=== PATIENT | female | born 1945 | race Caucasian/White ===

== ENCOUNTER 2021-10-04 13:09 | Inpatient (IN) ==
[2021-10-04 16:17] LABS: Basophils % 0.1 % (0.0-0.8); Hematocrit 34.1 VOL% (35.7-47.0); Hemoglobin 10.8 GM/DL (12.0-16.0); Immature Granulocytes % 0.5 %; Immature Granulocytes Absolute 0.04 #; Lymphocytes # 0.6 10*3/uL (1.4-4.0); Lymphocytes % 6.7 % (21.3-54.2); Mean Corpuscular HGB Conc 31.7 GM/DL (32-36); Mean Corpuscular Volume 90.5 FL (87-102); Mean Platelet Volume 14.8 FL (9.6-12.0); Monocytes % 8.1 % (1.7-12.7); Neutrophils % 84.6 % (38.7-73.9); Platelet Count 133 T/CUMM (130-400); Red Blood Count 3.77 MC/CUMM (3.8-5.5); Red Cell Distribution Width 14.1 % (9.3-17.3); White Blood Count 8.6 T/CUMM (4-12)
[2021-10-04 16:39] LABS: Albumin 2.7 G/DL (3.4-5.0); Calcium 8.9 MG/DL (8.5-10.1); Total Protein 7.1 G/DL (6.4-8.2)
[2021-10-04] MEDS ORDERED: ACETAMINOPHEN 325 MG TABLET PO PRN (17:45)
[2021-10-04] MEDS ORDERED: ONDANSETRON 4 MG/2 ML VIAL IV PRN (17:45)
[2021-10-04] MEDS ORDERED: AZITHROMYCIN INJ 500 MG in SODIUM CHLORIDE 0.9% 250 ML IV SCH (18:30)
[2021-10-04] MEDS ORDERED: TEMAZEPAM 7.5 MG CAPSULE PO PRN (18:31)
[2021-10-04] MEDS: SODIUM CHLORIDE 0.9% 1,000 ML IV SCH (19:11)
[2021-10-04] MEDS: AZITHROMYCIN INJ 250 MG in SODIUM CHLORIDE 0.9% 250 ML IV SCH (19:11)
[2021-10-04] MEDS: methylPREDNISolone SOD SUC 40 MG/1 ML VIAL IV SCH (19:12)
[2021-10-04] MEDS: DOCUSATE SODIUM 100 MG CAPSULE PO SCH (20:22)
[2021-10-05 00:40] LABS: Bilirubin,Urine Negative (Negative); Blood, Urine Small mg/dL (Negative); Glucose,Urine (UA) Negative (Negative); Hyaline Casts,Urine 1 /LPF (0-3); Ketones,Urine Negative (Negative); Mucus,Urine Occasional /LPF (Occasional); Nitrite,Urine Negative (Negative); Protein,Urine 30 MG/DL; RBC,Urine 10 /HPF (0-4); Squamous Epithelial Cell,Urine Occasional /HPF (0-10); Urine Appearance Slightly Hazy (Clear); Urine Specific Gravity 1.016 (1.001-1.035); Urine Urobilinogen < 2.0 EU/DL (<2.0)
[2021-10-05 00:41] LABS: Urine Color Yellow (Yellow)
[2021-10-05] MEDS: SODIUM CHLORIDE 0.9% 1,000 ML IV SCH ×2 (02:51→13:33)
[2021-10-05] MEDS: methylPREDNISolone SOD SUC 40 MG/1 ML VIAL IV SCH ×3 (05:34→21:24)
[2021-10-05 06:05] LABS: Basophils % 0.2 % (0.0-0.8); Hematocrit 30.7 VOL% (35.7-47.0); Immature Granulocytes % 0.6 %; Immature Granulocytes Absolute 0.03 #; Lymphocytes # 0.5 10*3/uL (1.4-4.0); Lymphocytes % 8.8 % (21.3-54.2); Mean Corpuscular HGB Conc 32.6 GM/DL (32-36); Mean Corpuscular Volume 90.8 FL (87-102); Mean Platelet Volume 13.9 FL (9.6-12.0); Monocytes % 3.1 % (1.7-12.7); Neutrophils % 87.3 % (38.7-73.9); Platelet Count 112 T/CUMM (130-400); Red Blood Count 3.38 MC/CUMM (3.8-5.5); Red Cell Distribution Width 14.2 % (9.3-17.3); White Blood Count 5.1 T/CUMM (4-12)
[2021-10-05 06:22] LABS: Albumin 2.2 G/DL (3.4-5.0); Bilirubin,Total 1.1 MG/DL (0.20-1.00); Calcium 8.3 MG/DL (8.5-10.1); Osmolality,Calculated 316.4 MOS/KG (273-304); Potassium 4.2 MMOL/L (3.5-5.1); Total Protein 6.2 G/DL (6.4-8.2)
[2021-10-05 07:32] LABS: Ovalocytes Few
[2021-10-05 07:33] LABS: Burr Cells Slight; Platelet Estimate Adequate
[2021-10-05] MEDS: DOCUSATE SODIUM 100 MG CAPSULE PO SCH ×2 (11:26→21:25)
[2021-10-05] MEDS: PANTOPRAZOLE 40 MG TABLET PO SCH (11:26)
[2021-10-05] MEDS ORDERED: LIDOCAINE 2% VISCOUS 100 ML BOTTLE SWISH/SPIT SCH (16:30)
[2021-10-05] MEDS: AZITHROMYCIN INJ 250 MG in SODIUM CHLORIDE 0.9% 250 ML IV SCH ×2 (19:45→21:23)
[2021-10-05] MEDS ORDERED: LIDOCAINE 2% VISCOUS 100 ML BOTTLE SWISH/SPIT PRN (19:46)
[2021-10-06 06:30] LABS: Hemoglobin 10.1 GM/DL (12.0-16.0); Immature Granulocytes % 0.6 %; Immature Granulocytes Absolute 0.06 #; Lymphocytes # 0.4 10*3/uL (1.4-4.0); Lymphocytes % 3.6 % (21.3-54.2); Mean Corpuscular HGB Conc 31.6 GM/DL (32-36); Mean Corpuscular Volume 91.2 FL (87-102); Mean Platelet Volume 14.7 FL (9.6-12.0); Monocytes % 5.3 % (1.7-12.7); Neutrophils % 90.5 % (38.7-73.9); Platelet Count 136 T/CUMM (130-400); Red Blood Count 3.51 MC/CUMM (3.8-5.5); Red Cell Distribution Width 14.6 % (9.3-17.3); White Blood Count 9.9 T/CUMM (4-12)
[2021-10-06 06:54] LABS: Calcium 8.3 MG/DL (8.5-10.1); Osmolality,Calculated 326.1 MOS/KG (273-304)
[2021-10-06 06:56] LABS: Band Neutrophils 2 % (0-10); Hypochromia 1+; Lymphocytes 1 % (20-55); Microcytosis 1+; Platelet Estimate Normal; Segmented Neutrophils 92 % (50-85); Total Cells Counted 100
[2021-10-06] MEDS: DOCUSATE SODIUM 100 MG CAPSULE PO SCH ×2 (09:42→21:45)
[2021-10-06] MEDS: PANTOPRAZOLE 40 MG TABLET PO SCH (09:42)
[2021-10-06] MEDS: methylPREDNISolone SOD SUC 40 MG/1 ML VIAL IV SCH ×2 (09:42→21:45)
[2021-10-06] MEDS: ENOXAPARIN 30 MG/0.3 ML SYRINGE SUBCUT SCH (12:17)
[2021-10-06] MEDS: ALBUTEROL/IPRATROPIUM 3 ML NEB RESP TX SCH ×2 (13:25→20:44)
[2021-10-06] MEDS: NYSTATIN 500,000 UNIT/5 ML UDCUP SWISH/SWAL SCH ×3 (14:12→21:45)
[2021-10-06] MEDS: SODIUM CHLORIDE 0.9% 1,000 ML IV SCH ×3 (16:42→19:08)
[2021-10-06] MEDS: AZITHROMYCIN INJ 250 MG in SODIUM CHLORIDE 0.9% 250 ML IV SCH (21:45)
[2021-10-07 05:34] LABS: Hematocrit 32.5 VOL% (35.7-47.0); Hemoglobin 10.4 GM/DL (12.0-16.0); Immature Granulocytes % 0.8 %; Immature Granulocytes Absolute 0.06 #; Lymphocytes # 0.3 10*3/uL (1.4-4.0); Lymphocytes % 3.1 % (21.3-54.2); Monocytes % 6.4 % (1.7-12.7); Neutrophils % 89.7 % (38.7-73.9); Platelet Count 127 T/CUMM (130-400); Red Blood Count 3.61 MC/CUMM (3.8-5.5); Red Cell Distribution Width 14.4 % (9.3-17.3)
[2021-10-07 05:57] LABS: Calcium 8.4 MG/DL (8.5-10.1); Osmolality,Calculated 331.6 MOS/KG (273-304)
[2021-10-07 06:14] LABS: Band Neutrophils 1 % (0-10); Hypochromia 1+; Lymphocytes 3 % (20-55); Ovalocytes Few; Segmented Neutrophils 95 % (50-85); Total Cells Counted 100
[2021-10-07 06:15] LABS: Acanthocytes Few; Microcytosis 1+; Platelet Estimate Adequate; Target Cells Slight
[2021-10-07] MEDS: ALBUTEROL/IPRATROPIUM 3 ML NEB RESP TX SCH ×3 (07:20→18:58)
[2021-10-07] MEDS ORDERED: NON-FORMULARY MEDICATION (Omeprazole 40 mg capsule,delayed release(DR/EC)) PO SCH (09:00)
[2021-10-07] MEDS: DOCUSATE SODIUM 100 MG CAPSULE PO SCH ×2 (09:14→21:31)
[2021-10-07] MEDS: MONTELUKAST 10 MG TABLET PO SCH (09:14)
[2021-10-07] MEDS: PANTOPRAZOLE 40 MG TABLET PO SCH (09:14)
[2021-10-07] MEDS: NYSTATIN 500,000 UNIT/5 ML UDCUP SWISH/SWAL SCH ×4 (09:14→21:31)
[2021-10-07] MEDS: FLUCONAZOLE 100 MG TABLET PO SCH (09:14)
[2021-10-07] MEDS: methylPREDNISolone SOD SUC 40 MG/1 ML VIAL IV SCH ×2 (09:27→21:31)
[2021-10-07] MEDS: ENOXAPARIN 30 MG/0.3 ML SYRINGE SUBCUT SCH (16:08)
[2021-10-07] MEDS: MYLANTA/LIDO VISC 2:1 300 ML BOTTLE SWISH/SPIT SCH ×2 (16:09→21:32)
[2021-10-07] MEDS ORDERED: AMINO ACIDS/DEXT/LYTES 4.25-5% 2,000 ML IV SCH (17:00)
[2021-10-07] MEDS: MEROPENEM 500 MG in SODIUM CHLORIDE 0.9% 100 ML IV SCH (21:32)
[2021-10-07] MEDS: metroNIDAZOLE INJ 500 MG/100 ML PREMIX IV SCH (23:16)
[2021-10-08] MEDS: methylPREDNISolone SOD SUC 40 MG/1 ML VIAL IV SCH ×3 (05:13→21:34)
[2021-10-08] MEDS: metroNIDAZOLE INJ 500 MG/100 ML PREMIX IV SCH ×3 (05:13→23:01)
[2021-10-08] MEDS: ALBUTEROL/IPRATROPIUM 3 ML NEB RESP TX SCH ×3 (07:45→19:18)
[2021-10-08 07:52] LABS: Basophils % 0.1 % (0.0-0.8); Hematocrit 36.7 VOL% (35.7-47.0); Hemoglobin 11.8 GM/DL (12.0-16.0); Immature Granulocytes % 1.4 %; Immature Granulocytes Absolute 0.12 #; Lymphocytes # 0.3 10*3/uL (1.4-4.0); Lymphocytes % 3.8 % (21.3-54.2); Mean Corpuscular HGB Conc 32.2 GM/DL (32-36); Mean Corpuscular Volume 89.7 FL (87-102); Monocytes % 5.1 % (1.7-12.7); Neutrophils % 89.6 % (38.7-73.9); Platelet Count 106 T/CUMM (130-400); Red Blood Count 4.09 MC/CUMM (3.8-5.5); Red Cell Distribution Width 14.6 % (9.3-17.3); White Blood Count 8.7 T/CUMM (4-12)
[2021-10-08 08:12] LABS: Albumin 2.3 G/DL (3.4-5.0); Bilirubin,Total 1.4 MG/DL (0.20-1.00); Calcium 8.9 MG/DL (8.5-10.1); Osmolality,Calculated 329.6 MOS/KG (273-304); Potassium 3.8 MMOL/L (3.5-5.1); Total Protein 6.6 G/DL (6.4-8.2)
[2021-10-08 08:37] LABS: Hypochromia Slight; Lymphocytes 1 % (20-55); Microcytosis Slight; Segmented Neutrophils 92 % (50-85); Total Cells Counted 100
[2021-10-08] MEDS: NYSTATIN 500,000 UNIT/5 ML UDCUP SWISH/SWAL SCH ×3 (09:05→18:27)
[2021-10-08] MEDS: MYLANTA/LIDO VISC 2:1 300 ML BOTTLE SWISH/SPIT SCH ×3 (09:06→18:27)
[2021-10-08] MEDS: DOCUSATE SODIUM 100 MG CAPSULE PO SCH (09:18)
[2021-10-08] MEDS: FLUCONAZOLE 100 MG TABLET PO SCH (09:18)
[2021-10-08] MEDS: MONTELUKAST 10 MG TABLET PO SCH (09:19)
[2021-10-08] MEDS: PANTOPRAZOLE 40 MG TABLET PO SCH (09:19)
[2021-10-08] MEDS: ENOXAPARIN 30 MG/0.3 ML SYRINGE SUBCUT SCH (10:21)
[2021-10-08] MEDS: MEROPENEM 500 MG in SODIUM CHLORIDE 0.9% 100 ML IV SCH ×2 (10:38→21:34)
[2021-10-08] MEDS ORDERED: DEXTROSE 10% 1,000 ML IV PRN (17:00)
[2021-10-08] MEDS ORDERED: FUROSEMIDE 20 MG/2 ML VIAL IV ONE (18:46)
[2021-10-09] MEDS: ALBUTEROL/IPRATROPIUM 3 ML NEB RESP TX SCH ×3 (00:05→19:27)
[2021-10-09] MEDS: DOCUSATE SODIUM 100 MG CAPSULE PO SCH ×2 (00:13→15:32)
[2021-10-09] MEDS: NYSTATIN 500,000 UNIT/5 ML UDCUP SWISH/SWAL SCH ×3 (00:13→18:28)
[2021-10-09] MEDS: MYLANTA/LIDO VISC 2:1 300 ML BOTTLE SWISH/SPIT SCH ×3 (00:14→18:29)
[2021-10-09] MEDS: MULTIVITAMIN INJ 10 ML in AMINO ACIDS/DEXT/LYTES 4.25-5% 2,000 ML IV SCH ×2 (04:31→18:31)
[2021-10-09] MEDS: metroNIDAZOLE INJ 500 MG/100 ML PREMIX IV SCH ×3 (05:08→23:59)
[2021-10-09] MEDS: methylPREDNISolone SOD SUC 40 MG/1 ML VIAL IV SCH ×2 (05:08→20:56)
[2021-10-09 05:45] LABS: Basophils % 0.1 % (0.0-0.8); Hematocrit 35.5 VOL% (35.7-47.0); Hemoglobin 11.4 GM/DL (12.0-16.0); Immature Granulocytes % 1.2 %; Immature Granulocytes Absolute 0.13 #; Lymphocytes # 0.3 10*3/uL (1.4-4.0); Lymphocytes % 2.6 % (21.3-54.2); Mean Corpuscular HGB Conc 32.1 GM/DL (32-36); Mean Corpuscular Volume 89.2 FL (87-102); Monocytes % 4.1 % (1.7-12.7); NRBC # 0.03 10*3/uL; Platelet Count 89 T/CUMM (130-400); Red Blood Count 3.98 MC/CUMM (3.8-5.5); Red Cell Distribution Width 14.9 % (9.3-17.3); White Blood Count 10.6 T/CUMM (4-12)
[2021-10-09 05:50] LABS: INR 1.2; PT Patient Result 12.9 SECS (10.5-12.0)
[2021-10-09 06:05] LABS: Hypochromia 1+; Lymphocytes 5 % (20-55); Microcytosis 1+; Ovalocytes Slight; Platelet Estimate Decreased; Segmented Neutrophils 88 % (50-85); Total Cells Counted 100
[2021-10-09 06:06] LABS: Calcium 8.9 MG/DL (8.5-10.1); Potassium 3.6 MMOL/L (3.5-5.1)
[2021-10-09] MEDS ORDERED: LACTATED RINGERS 1,000 ML IV SCH (08:00)
[2021-10-09] MEDS ORDERED: SODIUM CHLORIDE 0.45% 1,000 ML IV SCH (10:00)
[2021-10-09] MEDS ORDERED: FLUCONAZOLE INJ 100 MG/50 ML PREMIX IV SCH (10:00)
[2021-10-09 10:36] LABS: Basophils % 0.2 % (0.0-0.8); Hematocrit 34.6 VOL% (35.7-47.0); Immature Granulocytes % 1.4 %; Immature Granulocytes Absolute 0.14 #; Lymphocytes # 0.3 10*3/uL (1.4-4.0); Lymphocytes % 3.1 % (21.3-54.2); Mean Corpuscular HGB Conc 31.8 GM/DL (32-36); Mean Corpuscular Volume 89.9 FL (87-102); Monocytes % 3.2 % (1.7-12.7); NRBC # 0.04 10*3/uL; Neutrophils % 92.1 % (38.7-73.9); Platelet Count 84 T/CUMM (130-400); Red Blood Count 3.85 MC/CUMM (3.8-5.5)
[2021-10-09 10:58] LABS: Hypochromia Slight; Nucleated Red Blood Cells 3 (0-5); Platelet Estimate Decreased; Segmented Neutrophils 98 % (50-85); Total Cells Counted 100
[2021-10-09 10:59] LABS: Microcytosis 1+
[2021-10-09 11:08] LABS: Albumin 2.2 G/DL (3.4-5.0); Bilirubin,Total 1.2 MG/DL (0.20-1.00); Calcium 8.8 MG/DL (8.5-10.1); Potassium 3.5 MMOL/L (3.5-5.1); Total Protein 6.3 G/DL (6.4-8.2)
[2021-10-09] MEDS: MEROPENEM 500 MG in SODIUM CHLORIDE 0.9% 100 ML IV SCH ×2 (12:34→20:56)
[2021-10-09] MEDS: DILTIAZEM INJ 100 MG in SODIUM CHLORIDE 0.9% 100 ML IV SCH ×2 (13:04→19:16)
[2021-10-09 13:21] LABS: Basophils % 0.1 % (0.0-0.8); Hematocrit 35.7 VOL% (35.7-47.0); Hemoglobin 11.3 GM/DL (12.0-16.0); Immature Granulocytes % 1.3 %; Immature Granulocytes Absolute 0.15 #; Lymphocytes # 0.3 10*3/uL (1.4-4.0); Mean Corpuscular HGB Conc 31.7 GM/DL (32-36); Mean Corpuscular Volume 89.7 FL (87-102); Monocytes % 3.6 % (1.7-12.7); NRBC # 0.07 10*3/uL; Platelet Count 93 T/CUMM (130-400); Red Blood Count 3.98 MC/CUMM (3.8-5.5); Red Cell Distribution Width 15.1 % (9.3-17.3); White Blood Count 11.3 T/CUMM (4-12)
[2021-10-09] MEDS ORDERED: METOPROLOL TARTRATE 5 MG/5 ML VIAL IV ONE (13:38)
[2021-10-09 13:41] LABS: Albumin 2.3 G/DL (3.4-5.0); Bilirubin,Total 1.1 MG/DL (0.20-1.00); Calcium 8.9 MG/DL (8.5-10.1); Potassium 3.7 MMOL/L (3.5-5.1); Total Protein 6.5 G/DL (6.4-8.2)
[2021-10-09] MEDS: METOPROLOL TARTRATE 5 MG/5 ML VIAL IV SCH ×2 (13:41→15:06)
[2021-10-09 13:47] LABS: Thyroid Stimulating Hormone 2.17 uIU/ml (0.358-3.74)
[2021-10-09] MEDS ORDERED: FAT EMULSION 20% 250 ML IV SCH (14:00)
[2021-10-09 14:08] LABS: Band Neutrophils 3 % (0-10); Lymphocytes 3 % (20-55); Segmented Neutrophils 91 % (50-85); Total Cells Counted 100
[2021-10-09 14:10] LABS: Platelet Estimate Decreased
[2021-10-09 14:11] LABS: Ovalocytes Slight
[2021-10-09 14:12] LABS: Target Cells Slight
[2021-10-09] MEDS: MONTELUKAST 10 MG TABLET PO SCH (15:33)
[2021-10-09] MEDS: PANTOPRAZOLE 40 MG TABLET PO SCH (15:33)
[2021-10-09] MEDS: FLUCONAZOLE INJ 100 MG/50 ML PREMIX IV SCH (16:39)
[2021-10-09] MEDS: FUROSEMIDE 20 MG/2 ML VIAL IV SCH (18:27)
[2021-10-09] MEDS: FLUCONAZOLE 100 MG TABLET PO SCH (20:08)
[2021-10-09] MEDS ORDERED: DIGOXIN 0.5 MG/2 ML AMP IV ONE (20:36)
[2021-10-10] MEDS: ALBUTEROL/IPRATROPIUM 3 ML NEB RESP TX SCH ×5 (01:10→19:40)
[2021-10-10] MEDS: NYSTATIN 500,000 UNIT/5 ML UDCUP SWISH/SWAL SCH ×5 (02:00→20:43)
[2021-10-10] MEDS: MYLANTA/LIDO VISC 2:1 300 ML BOTTLE SWISH/SPIT SCH ×5 (02:00→20:43)
[2021-10-10] MEDS: DOCUSATE SODIUM 100 MG CAPSULE PO SCH ×3 (02:00→20:43)
[2021-10-10] MEDS: DILTIAZEM INJ 100 MG in SODIUM CHLORIDE 0.9% 100 ML IV SCH ×5 (02:04→16:18)
[2021-10-10] MEDS ORDERED: MORPHINE 2 MG/1 ML SYRINGE IV ONE (04:58)
[2021-10-10] MEDS ORDERED: FUROSEMIDE 20 MG/2 ML VIAL IV ONE (04:58)
[2021-10-10] MEDS: SODIUM CHLORIDE 0.9% 1,000 ML IV SCH (07:30)
[2021-10-10 07:37] LABS: Basophils % 0.1 % (0.0-0.8); Hematocrit 35.8 VOL% (35.7-47.0); Immature Granulocytes % 1.1 %; Immature Granulocytes Absolute 0.14 #; Lymphocytes # 0.3 10*3/uL (1.4-4.0); Lymphocytes % 2.7 % (21.3-54.2); Mean Corpuscular HGB Conc 30.7 GM/DL (32-36); Mean Corpuscular Volume 93.2 FL (87-102); Monocytes % 2.9 % (1.7-12.7); NRBC # 0.06 10*3/uL; Neutrophils % 93.2 % (38.7-73.9); Platelet Count 82 T/CUMM (130-400); Red Blood Count 3.84 MC/CUMM (3.8-5.5); Red Cell Distribution Width 15.6 % (9.3-17.3); White Blood Count 12.4 T/CUMM (4-12)
[2021-10-10 07:56] LABS: Band Neutrophils 11 % (0-10); Lymphocytes 2 % (20-55); Nucleated Red Blood Cells 1 (0-5); Platelet Estimate Decreased; Segmented Neutrophils 85 % (50-85); Total Cells Counted 100
[2021-10-10 07:57] LABS: Acanthocytes Few; Albumin 1.9 G/DL (3.4-5.0); Anisocytosis 2+; Bilirubin,Total 1.3 MG/DL (0.20-1.00); Burr Cells Few; Calcium 8.4 MG/DL (8.5-10.1); Macrocytosis 1+; Osmolality,Calculated 348.6 MOS/KG (273-304); Ovalocytes Few; Potassium 3.9 MMOL/L (3.5-5.1); Total Protein 6.1 G/DL (6.4-8.2)
[2021-10-10] MEDS ORDERED: LACTATED RINGERS 1,000 ML IV SCH (08:00)
[2021-10-10] MEDS: methylPREDNISolone SOD SUC 40 MG/1 ML VIAL IV SCH ×2 (09:23→20:45)
[2021-10-10] MEDS: FUROSEMIDE 20 MG/2 ML VIAL IV SCH (09:23)
[2021-10-10] MEDS: MEROPENEM 500 MG in SODIUM CHLORIDE 0.9% 100 ML IV SCH ×2 (09:23→20:46)
[2021-10-10] MEDS: FLUCONAZOLE INJ 100 MG/50 ML PREMIX IV SCH (09:23)
[2021-10-10] MEDS: PANTOPRAZOLE 40 MG TABLET PO SCH (09:25)
[2021-10-10] MEDS: MONTELUKAST 10 MG TABLET PO SCH (09:25)
[2021-10-10] MEDS: METOPROLOL TARTRATE 5 MG/5 ML VIAL IV SCH (09:34)
[2021-10-10] MEDS ORDERED: DIGOXIN 0.5 MG/2 ML AMP IV ONE (10:12)
[2021-10-10] MEDS: SODIUM CHLORIDE 0.45% 1,000 ML IV SCH (10:20)
[2021-10-10] MEDS ORDERED: MORPHINE 2 MG/1 ML SYRINGE IV PRN (11:19)
[2021-10-10] MEDS ORDERED: LORazepam 2 MG/1 ML VIAL IV PRN (11:19)
[2021-10-10] MEDS: metroNIDAZOLE INJ 500 MG/100 ML PREMIX IV SCH ×2 (12:37→20:50)
[2021-10-10 13:55] LABS: Calcium 8.4 MG/DL (8.5-10.1); Osmolality,Calculated 349.7 MOS/KG (273-304); Potassium 4.4 MMOL/L (3.5-5.1)
[2021-10-11] MEDS: ALBUTEROL/IPRATROPIUM 3 ML NEB RESP TX SCH ×2 (01:00→07:35)
[2021-10-11] MEDS ORDERED: SODIUM CHLORIDE 0.45% 500 ML IV SCH (01:00)
[2021-10-11] MEDS: metroNIDAZOLE INJ 500 MG/100 ML PREMIX IV SCH ×2 (03:32→13:35)
[2021-10-11 08:02] LABS: Albumin 1.7 G/DL (3.4-5.0); Bilirubin,Total 0.8 MG/DL (0.20-1.00); Calcium 8.1 MG/DL (8.5-10.1); Osmolality,Calculated 352.7 MOS/KG (273-304); Potassium 5.7 MMOL/L (3.5-5.1); Total Protein 5.7 G/DL (6.4-8.2)
[2021-10-11 08:17] LABS: Basophils % 0.1 % (0.0-0.8); Hematocrit 34.5 VOL% (35.7-47.0); Hemoglobin 9.5 GM/DL (12.0-16.0); Immature Granulocytes % 2.6 %; Immature Granulocytes Absolute 0.44 #; Lymphocytes # 0.4 10*3/uL (1.4-4.0); Lymphocytes % 2.4 % (21.3-54.2); Mean Corpuscular HGB Conc 27.5 GM/DL (32-36); Mean Corpuscular Volume 103.3 FL (87-102); Mean Platelet Volume 14.9 FL (9.6-12.0); Monocytes % 3.6 % (1.7-12.7); NRBC # 0.15 10*3/uL; Neutrophils % 91.3 % (38.7-73.9); Platelet Count 126 T/CUMM (130-400); Red Blood Count 3.34 MC/CUMM (3.8-5.5); Red Cell Distribution Width 16.4 % (9.3-17.3); White Blood Count 17.1 T/CUMM (4-12)
[2021-10-11 08:23] LABS: Lymphocytes 2 % (20-55); Segmented Neutrophils 90 % (50-85); Total Cells Counted 100
[2021-10-11 08:24] LABS: Hypochromia 1+; Microcytosis 1+
[2021-10-11] MEDS: MYLANTA/LIDO VISC 2:1 300 ML BOTTLE SWISH/SPIT SCH ×2 (09:00→11:30)
[2021-10-11] MEDS: MONTELUKAST 10 MG TABLET PO SCH (09:01)
[2021-10-11] MEDS: DOCUSATE SODIUM 100 MG CAPSULE PO SCH (09:01)
[2021-10-11] MEDS: NYSTATIN 500,000 UNIT/5 ML UDCUP SWISH/SWAL SCH ×2 (09:01→12:33)
[2021-10-11] MEDS: PANTOPRAZOLE 40 MG TABLET PO SCH (09:01)
[2021-10-11] MEDS: MEROPENEM 500 MG in SODIUM CHLORIDE 0.9% 100 ML IV SCH (09:32)
[2021-10-11] MEDS: FUROSEMIDE 20 MG/2 ML VIAL IV SCH (09:33)
[2021-10-11] MEDS: methylPREDNISolone SOD SUC 40 MG/1 ML VIAL IV SCH (09:41)
[2021-10-11] MEDS: SODIUM CHLORIDE 0.45% 1,000 ML IV SCH (17:37)
[2021-10-12 04:35] VITALS: BP 48/18
== END 2021-10-12 08:58 | disposition expired | DRG 640 ==
LOC: EDUNIT# → EDBD → N.ED 13:09 → N.TELES 13:09
PROVIDERS: ADMIT Family Medicine; ATTEND Family Medicine